=== PATIENT | female | born 1995 | race Caucasian/White ===

== ENCOUNTER 2018-10-02 19:06 | Emergency (ER) | payer OTHER ==
--- NOTE | 2018-10-02 21:11 | ER ---
Nurse's Notes [facility] Name: Kristen Fonseca Age: 22 yrs Sex: Female : 1995 Arrival Date: 10/02/2018 Time: 19:11 Bed Waiting Private MD: Diagnosis: Presentation: 10/02 19:17 Presenting complaint: Patient states: "3 days ago I went to the swager operator and got a jd3 positive test and today I am having spotting and cramping. so I don't know if I am still or what.". Transition of care: patient was not received from another setting of care. Onset of symptoms was October 02, 2018. Risk Assessment: Do you want to hurt yourself or someone else? Patient reports no desire to harm self or others. Initial Sepsis Screen: Does the patient meet any 2 criteria? No. Patient's initial sepsis screen is negative. Does the patient have a suspected source of infection? No. Patient's initial sepsis screen is negative. Care prior to arrival: None. 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 - Social history:: Smoking status: Patient/guardian denies using tobacco, Patient uses vape. - Ebola Screening: : Patient negative for fever greater than or equal to 101.5 degrees Fahrenheit, and additional compatible Ebola Virus Disease symptoms. Vital Signs: 19:20 BP 144 / 69; Pulse 90; Resp 15 S; Temp 97.7(O); Pulse Ox 97% on R/A; Weight 116.57 kg jd3 (R); Height 5 ft. 4 in. (162.56 cm) (R); Pain 5/10; 19:20 Body Mass Index 44.11 (116.57 kg, 162.56 cm) [facility] ED Course: 19:11 Patient arrived in ED. es 19:18 Triage completed. jd3 19:21 Arm band placed on. jd3 20:50 Patient's name was called from ER lobby. No response. jd3 21:07 Patient's name was called from ER lobby. No response. jd3 Administered Medications: No medications were administered Outcome: 21:10 Patient left the ED. jd3 Signatures: Vivian Lira Jonathon RN RN jd3
== END 2018-10-02 21:10 | disposition left against medical advice (07) ==
LOC: ER 19:06
DX: Z53.21 Procedure and treatment not carried out due to patient leaving prior to being seen by health care provider (principal); Z3A.00 Weeks of gestation of pregnancy not specified
CPT/HCPCS: 99281

== ENCOUNTER 2019-12-12 18:00 | Emergency (ER) | payer SELFPAY ==
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
[2019-12-12 19:30] VITALS: BP 147/99; TEMP 98.4; O2SAT 98
== END 2019-12-12 19:24 | disposition left against medical advice (07) ==
LOC: ER 18:00
DX: Z53.21 Procedure and treatment not carried out due to patient leaving prior to being seen by health care provider (principal)
CPT/HCPCS: 99281

== ENCOUNTER 2022-02-13 00:46 | Emergency (ER) | payer SELFPAY ==
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
--- NOTE | 2022-02-13 01:21 | ER ---
Nurse's Notes [facility] Name: Kristen Fonseca Age: 26 yrs Sex: Female : 1995 Arrival Date: 02/13/2022 Time: 00:48 Bed 13 Private MD: Diagnosis: Restlessness and agitation Presentation: 02/13 01:04 Chief complaint: EMS states: pt brought in after arriving to scene for different call lg3 out. pt rambling and hollering not making any sense. brought in for evaluation. 01:04 Method Of Arrival: EMS: [facility] lg3 Triage Assessment: 01:04 General: Appears in no apparent distress. Behavior is agitated, anxious, combative, lg3 inappropriate for age, uncooperative. Neuro: Level of Consciousness is awake, alert. Cardiovascular: Respiratory: Airway is patent Respiratory effort is even, unlabored, Respiratory pattern is regular, symmetrical. GI: Abdomen is round. Derm: No deficits noted. Skin is intact, is healthy with good turgor, Skin is dry, Skin temperature is hot. Musculoskeletal: No deficits noted. Circulation, motion, and sensation intact. Range of motion: intact in all extremities. - Family history:: not pertinent. - Hospitalizations: : No recent hospitalization is reported. Assessment: 01:13 General: pt refused to answer any and all triage and nurse assessment questions. pt lg3 gathered her belongings and left the facility after provider attempted to assess. . ED Course: 00:48 Patient arrived in ED. mw2 00:48 Bhavesh Mendoza MD is Attending Physician. rn 00:48 Karly Smalls RN is Primary Nurse. lg3 01:16 Patient did not have IV access during this emergency room visit. lg3 Administered Medications: No medications were administered Outcome: 01:03 Discharge ordered by . rn 01:16 Discharged to Unknown lg3 01:16 Condition: stable 01:20 Patient left the ED. lg3 Signatures: Bhavesh Mendoza MD MD rn [place], MyKena 2 Karly Smalls RN RN 3
--- OUTSIDE RECORDS SUMMARY | 2022-02-14 14:58 | XMS REPORT | Continuity of Care Document ---
:1995 Author Organization [facility] t Address [address] [place] [address] Care Team Providers Name Role Phone Pcp-None Primary Care Physician Unavailable ABRAHAM Attending Clinician Unavailable ANDREW Attending Clinician Unavailable Andrew OAKES Attending Clinician Marimar APARICIO Attending Clinician Unavailable Db Attending Clinician Unavailable Carolee Cintron Attending Clinician Carolee CUTLER Attending Clinician Unavailable Payers Payer Name Policy Type Policy Number Effective Date Expiration Date [facility] [id number] 2431-05-09 00:00:00 [facility] [id number] 2020 CHOICE MEDICAID 00:00:00 [facility] [id number] 2020 CHOICE STAR 00:00:00 Problems Condition Condition Condition Status Onset Resolution Last Treating Co mments Source Name Details Category Date Date Treatment Clinician Date Encounter Encounter Disease Active Uni vers for other for other 4-11 ity of general general 00:00: [place] counseling counseling 00 Me dical or advice or advice Bran ch on on contracept contracept ion ion Need for Need for Disease Active Unive rs HPV HPV 4-11 it[place] Vaginal Vaginal Disease Active Univers discharge discharge 4-11 ity of 00:00: [place] 00 Medical Branch Encounter Encounter Disease Active Uni vers for for 6-29 ity of surveillan surve[place]an [place] ce of 00 Medical other other Branch contracept contracept cheryl cheryl Breech Breech Disease Active Univers presentati presentati 2-04 it y of on on 00:00: [place] [address] Medical Branch 39 weeks 39 weeks Disease Active Unive rs gestation gestation 2-04 ity of of of 00:00: [place] [address] [facility] Branch Screening Screening Disease Active Uni vers for viral for viral 08-25 ity of disease disease 00:00: [place] [facility] BMI BMI Disease Active 2019-07 Univers 40.0-44.9, 40.0-44.9, 07-29 it y of adult adult 00:00: [place] [facility] Supervisio Supervisio Disease Active 2019-07 U nivers n of high n of high 07-29 ity of risk risk 00:00: [place] [address] 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 mass index mass index Br anch (BMI) of (BMI) of 40.0 to 40.0 to 44.9 in 44.9 in adult, adult, unspecifie unspecifie d obesity d obesity type, type, unspecifie unspecifie d whether d whether serious serious comorbidit comorbidit y present y present Depression Depression Disease Active 2019-07 U nivers 0-12 ity of 00:00: [place] [facility] Bipolar Bipolar Disease Active 2019-07 Univers depression depression 0-12 it y of 00:00: [place] [address] Medical Branch Maternal Maternal Disease Active 2019-07 Overview: Un stepan varicella, varicella, 0-08 Formattin ity of non-immune non-immune 00:00: g of this [place] 00 note Medical might be Branch different from the original. Address in PP. Allergies, Adverse Reactions, Alerts Allergy Allergy Status Severity Reaction(s) Onset Inactive Treating Comm ents Source Name Type Date Date Clinician Unable DA Active U [facility] to 5-07 Assess 00:00: 00 Sulfa DA Active U Anaphylaxis [facility] (Sulfona 5-07 mide 00:00: Antibiot 00 ics) SULFA Drug Active Anaphylaxis Unive rs (SULFONA Class 5-20 ity of MIDE 00:00: [place] ANTIBIOT 00 Medical ICS) Branch Sulfa Propensi Active Anaphylaxis Uni vers (Sulfona ty to 5-20 ity of mide adverse 00:00: [place] Antibiot reaction 00 Medica l ics) s Branch Sulfa Propensi Active Anaphylaxis Uni vers (Sulfona ty to 5-20 ity of mide adverse 00:00: [place] Antibiot reaction 00 Medica l ics) s Branch sulfa Drug Active [facility] sulfa Drug Active [facility] sulfa Drug Active [facility] sulfa Drug Active [facility] sulfa Drug Active [facility] sulfa Drug Active [facility] sulfa Drug Active [facility] sulfa Drug Active [facility] sulfa Drug Active [facility] sulfa Drug Active [facility] Social History Social Habit Start Date Stop Date Quantity Comments Source History of tobacco Cigarette Smoker University of use [facility] Exposure to 2022-02-03 2022-02-13 Not sure University SARS-CoV-2 (event) 00:00:00 02:16:00 [facility] Tobacco use and 2021-11-05 2021-11-05 Smokeless Universit y of exposure 00:00:00 00:00:00 tobacco non-user [facility] Alcohol intake 2021-11-05 2021-11-05 Current drinker Unive rsity of 00:00:00 00:00:00 of alcohol [facility] [place] Tobacco Comment 2021-11-05 2021-11-05 vapes as well Univer sity of 00:00:00 00:00:00 [facility] Cigarettes smoked 2021-11-05 2021-11-05 Univers ity of current (pack per 00:00:00 00:00:00 [facility] ) - Reported Branch Cigarette 2021-11-05 2021-11-05 University of pack-years 00:00:00 00:00:00 [facility] Alcohol Comment 2021-11-05 2021-11-05 social Universit y of 00:00:00 00:00:00 [facility] History SDOH 2020-05-03 2020-05-03 1 [place] o f Alcohol Frequency 00:00:00 00:00:00 [facility] edical Branch History SDOH 2020-05-03 2020-05-03 99 [place] o f Alcohol Std Drinks 00:00:00 00:00:00 [facility] History [facility] 2020-05-03 2020-05-03 1 [place] o f Alcohol Binge 00:00:00 00:00:00 [facility] Sex Assigned At [birth year] Universit y of 00:00:00 00:00:00 [facility] Smoking Status Start Date Stop Date Source Smokes tobacco daily 2021-11-05 00:00:00 Univers ity of [facility] Medications Ordered Filled Start Stop Current Ordering Indication Dosage Frequency Signature Comments Components Source Medication Medication Date Date Medication? Clinician (SIG) Name Name amoxicillin Yes [id number] 500mg Take 1 Univers 500 mg 7-20 capsule by ity of capsule 00:00: mouth in [place] 00 the Medical morning Branch and 1 capsule at noon and 1 capsule in the evening. metroNIDAZO 2021- No [id number] 500mg Take 1 Univers LE 500 mg -12 04-20 tablet by ity of tablet 00:00: 04:59 mouth 2 [place] 00 :00 (two) Medical times [place] daily for 7 days. NUVARING Yes [id number] 1{each} Insert 1 Univers 0.12-0.015 4-11 Each into ity of mg/24 hr 00:00: vagina [place] vaginal 00 once every Medica l insert month. Branch Insert vaginally and leave in place for 3 consecutiv e weeks, then remove for 1 week. NUVARING Yes [id number] 1{each} Insert 1 Univers 0.12-0.015 4-11 Each into ity of mg/24 hr 00:00: vagina [place] vaginal 00 once every Medica l insert month. Branch Insert vaginally and leave in place for 3 consecutiv e weeks, then remove for 1 week. NUVARING Yes [id number] 1{each} Insert 1 Univers 0.12-0.015 4-11 Each into ity of mg/24 hr 00:00: vagina [place] vaginal 00 once every Medica l insert month. Branch Insert vaginally and leave in place for 3 consecutiv e weeks, then remove for 1 week. Immunizations Ordered Filled Immunization Date Status Comments [facility] e Immunization Name Name HPV9 2021-11-05 Completed University of 00:00:00 [facility] HPV9 2021-11-05 Completed University of 00:00:00 [facility] HPV9 2021-11-05 Completed University of 00:00:00 [facility] HPV9 2020-10-31 Completed University of 00:00:00 [facility] HPV9 2020-10-31 Completed University of 00:00:00 [facility] HPV9 2020-10-31 Completed University of 00:00:00 [facility] HPV9 2020-09-20 Completed University of 00:00:00 [facility] HPV9 2020-09-20 Completed University of 00:00:00 [facility] HPV9 2020-09-20 Completed University of 00:00:00 [facility] TDAP 2020-07-10 Completed University of 00:00:00 [facility] TDAP 2020-07-10 Completed University of 00:00:00 [facility] TDAP 2020-07-10 Completed University of 00:00:00 [facility] Influenza Virus 2020-05-08 Completed Universit y of Vaccine Quad .5 mL 00:00:00 [facility] IM 6+ MO Branch Influenza Virus 2020-05-08 Completed Universit y of Vaccine [place] .5 mL 00:00:00 [facility] IM 6+ MO Branch Influenza Virus 2020-05-08 Completed Universit y of Vaccine Quad .5 mL 00:00:[address] [facility] 6+ MO Branch Vital Signs Vital Name Observation Time Observation Value Comments Source Systolic blood 2022-02-13 08:00:00 129 mm[Hg] Univer sity of pressure [facility] Diastolic blood 2022-02-13 08:00:00 81 mm[Hg] Unive rsity of pressure [facility] Heart rate 2022-02-13 08:00:00 90 /min [facility] Respiratory rate 2022-02-13 08:00:00 18 /min [facility] Oxygen saturation in 2022-02-13 08:00:00 97 /min [facility] Arterial blood by [facility] Pulse oximetry [place] Body temperature 2022-02-13 07:37:00 37.22 Alyson [facility] Body height 2022-02-13 07:17:00 162.6 cm [facility] Body weight 2022-02-13 07:17:00 90.719 kg [facility] BMI 2022-02-13 07:17:00 34.33 kg/m2 [facility] Weight Dosing 2021-08-14 10:53:02 111.00 kg Weight Dosing 2021-08-14 10:49:37 111.00 kg Weight Dosing 2021-08-14 10:37:37 111.00 kg Weight Dosing 2021-08-14 10:34:46 111.00 kg Weight Dosing 2021-08-14 10:34:39 111.00 kg Weight Dosing 2021-08-14 10:33:28 111.00 kg Weight Dosing 2021-08-14 10:32:41 111.00 kg Weight Dosing 2021-08-14 10:31:33 111.00 kg Weight Dosing 2021-08-14 10:31:04 111.00 kg Procedures Procedure Date / Time Performing Clinician Source Performed XR PELVIS <3 VW 2022-02-13 07:47:33 Simeon Morales [facility] URINALYSIS 2022-02-13 07:36:00 Simeon Morales [facility] POCT TEST 2022-02-13 07:36:00 Simeon Morales [facility] URINE DRUG (IMMUNOASSAY) 2022-02-13 07:36:00 Simeon Morales [facility] SCREEN W/O REFLEX Encounters Start End Encounter Admission Attending Care Care Encounter Source Date/Time Date/Time Type Type Clinicians Facility Department ID 2021-12-05 Outpatient JEANIE ROSARIO [facility] [id number] 3-2 [facility] 07:35:29 [id number] [facility] [id number] [id number] [facility] 02:56:44 [id number] Outpatient [facility] [id number] [place] 10:27:23 [id number] [facility] 2021-12-03 Outpatient JEANIE ROSARIO [facility] [id number] 3-2 [facility] 10:09:15 [id number] 2021-12-02 Outpatient [facility] [id number] [place] 22:28:[id number] [place] [address] 2021-12-[address] [facility] [id number] [facility] 17:11:00 38 2022-02-13 2022-02-13 Emergency X [facility] ERT [id number] Univers 02:17:00 03:57:00 SIMEON hightower [facility] 2022-02-13 2022-02-13 Emergency [facility] [id number] [facility] 02:17:00 03:57:00 [facility] [id number] i ty [facility] [id number] [facility] [id number] [address] 2021-12-02 2021-12-03 Emergency [facility]Z [facility] MED [id number] [place] 00:35:00 09:40:00 [place], [facility] 2021-12-03 2021-12-03 Outpatient [facility] [id number] [place] 00:00:00 00:00:00 [facility] 2021-11-22 2021-11-22 Telephone Douglas KYROBERTO CARLOS [id number] [facility] 00:00:00 00:00:00 Elaine R WAREHOUSE ADMINISTRATOR [id number] ity General acute hospital [id number] Yusef Zucker [facility] [id number] [facility] ical & CHILD [address] [place] [address] 2021-11-06 2021-11-06 Telephone Douglas KYROBERTO CARLOS [id number] [facility] 00:00:00 00:00:00 Benjamina R WAREHOUSE ADMINISTRATOR [id number] [facility] [id number] Yusef as MATERNAL [id number] Med ical & CHILD [address] [place] [address] 2021-11-05 2021-11-05 Outpatient Carolee CUTLER [facility] [id number] Univers 10:30:00 11:53:26 ELAINE medina [facility] 2019-12-16 2019-12-16 Emergency [facility] IVÁN [id number] 07:30:00 07:30:00 [facility] Results Test Description Test Time Test Comments Results Result Comments Source POCT TEST 2022-02-13 07:36:00 Test Item Value Reference Range Interpretation Comme nts POCT PREG (test code = 1605) negative On board controls acceptable with C Line (test code = 3574) present POCT PREG LOT # (test code = 3575) [id number] POCT PREG TEST DATE (test code = 3576) 05/27/2023 Lab Interpretation (test code = 33224-4) [facility] [id number] 10:47:40 Test Item Value Reference Range Interpretation Comments HCG, Serum Qual (test code = HCG, Negative Serum Qual) Lot # (test code = Lot #) [id number] Expiration Dt (test code = 2021-05-27 N Expiration Dt) Neg Control (test code = Neg Negative Control) Pos Control (test code = Pos Positive Control) Internal QC (test code = Internal Acceptable QC) POC [id number] 10:16:51 Test Item Value Reference Range Interpretation Comments Glucose POC (test 95 mg/dL 70-115 If you con cable television line technician your code = Glucose POC) patient critically ill, the Ajit-Accu Check Infrom II meter should not be used for Glucose determination. Draw a venous Glucose and send to the main Lab for analysis. HIV 1/2 AB-P24 Ag [id number] 11:52:16 Test Item Value Reference Range Interpretation Comments HIV 1/2 Ab (test code = HIV Non Reactive Non Reactive 1/2 Ab) P24 Ag (test code = P24 Ag) Non Reactive Non Reactive Neg Control (test code = Neg Non-Reactive Control) Pos Control (test code = Pos Reactive Control) Lot # (test code = Lot #) [id number] Expiration Dt (test code = 3-27-21 N Expiration Dt) Acute Hepatitis [id number] 07:37:38 Test Item Value Reference Range Interpretation Comments Hep A IgM (test code = Hep A IgM) Nonreactive Non Reactive Hep B Core Ab IgM (test code = Nonreactive Non Reactive Hep B Core Ab IgM) Hep Bs Ag (test code = Hep Bs Ag) Nonreactive Non Reactive Hep C Ab (test code = Hep C Ab) Nonreactive Non Reactive RPR [id number] 16:51:00 Test Item Value Reference Range Interpretation Comments RPR Qual (test code = RPR Qual) Non-Reactive Non-Reactive Reactive Control (test code = Reactive Reactive Control) Weak Reactive Control (test Weak Reactive code = Weak Reactive Control) Non-Reactive Control (test code Non-Reactive = Non-Reactive Control) Lot # (test code = Lot #) [id number] Expiration Dt (test code = 12.31.20 N Expiration Dt) Thyroid Stimulating [id number] 07:46:45 Test Item Value Reference Range Interpretation Comments TSH (test code = TSH) 3.370 mIU/mL 0.270-4.200 Lipid [id number] 07:37:05 Test Item Value Reference Range Interpretation Comments Cholesterol Total 142 mg/dL 0-200 RISK OF HE ART (test code = DISEASEPublishe d by Cholesterol Total) [place] [employer] Daniella lyte Optimal Borderl ine Increased RiskC HOL <200 200-239 >2 40TRIG <150 150-199 >2 00HDL Male >60 <40H DL Female >60 <5 0LDL <100 130-159 >1 60LDL Near optimal is 100-129 Triglycerides (test 193 mg/dL 9-200 code = Triglycerides) HDL (test code = HDL) 32 mg/dL 50-60 L LDL (test code = LDL) 72 mg/dL 0-130 The eq uation being used in this calcula tion is LDL = (Chol - H DL) - (Trig / 5) VLDL (test code = 39 mg/dL 5-40 The equati on being used VLDL) in this calcula tion is VLDL = Trig / 5 Chol/HDL (test code = 4.4 ratio 0.0-4.4 Chol/HDL) LDL/HDL Ratio (test 2 N The equa tion being used code = LDL/HDL Ratio) in thi s calculation is LDL/HDL Ratio=L DL Calc/HDL Chol XR chest 1V [facility] [address] [place] [address] Patient Name: Conor Fonseca Medical Record#: [id number] Address: [facility] [address] City/State/Zip: [place] [address]: Henrique Ace MD Insurance: Medicaid [place] /Age/Sex: 1995// Self Pay Admit/Reg Date: 12/01/[address]: Reji Pavon P Location: [facility]/ PCP: Pcp-Md CHAMP Baez Date of Service: 12/01/21 Order (s): XR chest 1V CPT Code: 02221 Report Number: [id number] Reason for Exam: cough EXAMINATION: XR chest 1V CLINICAL INDICATION: Female, 26 years old with cough COMPARISON: None. FINDINGS: Single view(s) of the chest submitted. Support Devices: None. Heart: Cardiac silhouette is normal in size. Mediastinum: Mediastinal contours are normal. Lungs: Pulmonary vessels are normal in size. Lungs are well aerated and clear. Pleura: No pleural effusion is identified. No pneumothorax is present. Bones: Visualized skeleton is normal. IMPRESSION: No acute cardiopulmonary disease. Electronically signed by: Elizabeth Mallory MD 12/01/2021 7:14 PM CDT Dictated By: Elizabeth Mallory MD 12/01/211903 Signed By: Elizabeth Mallory MD 12/01/211915 TD/TT: 12/01/211903 Tech: [id number] cc: GERALD; PCPNO* Antonietta Son, VINNIE; Pcp-Md CHAMP Baez
== END 2022-02-13 01:20 | disposition home or self-care (01) ==
LOC: ER 00:46
DX: R45.1 Restlessness and agitation (principal)

== ENCOUNTER 2022-02-13 19:12 | Emergency (ER) | payer SELFPAY ==
--- NOTE | 2022-02-13 20:27 | ER ---
Nurse's Notes [facility] Name: Kristen Fonseca Age: 26 yrs Sex: Female : 1995 Arrival Date: 02/13/2022 Time: 19:27 Bed Waiting Private MD: Diagnosis: ED Course: 02/13 19:27 Patient arrived in ED. ja2 20:03 Starla Vega FNP-C is [facility]. kb 20:03 Bhavesh Mendoza MD is Attending Physician. kb 20:05 Patient's name was called from [facility]. No response. Unable to locate patient. Will as6 disposition as left without being seen by a provider. Administered Medications: No medications were administered Outcome: 20:26 Patient left the ED. as6 20:29 Patient left the ED. kb Signatures: Starla Vega FNP-C FNP-Ckb Alexander, Jessica ja2 Otto Graham, RN RN as6
--- NOTE | 2022-02-13 20:30 | EDPHYS ---
Physician Documentation [facility] Name: Kristen Fonseca Age: 26 yrs Sex: Female : 1995 Arrival Date: 02/13/2022 Time: 19:27 Bed Waiting Private MD: ED Physician MDM: 02/13 20:20 Patient medically screened. kb Administered Medications: No medications were administered Disposition Summary: 02/13/22 20:26 Eloped Disposition: Before Triage as6 Reason: unknown as6 Signatures: Starla Vega, JCC Otto Pate, RN RN as6
--- OUTSIDE RECORDS SUMMARY | 2022-02-14 15:55 | XMS REPORT | Continuity of Care Document ---
:1995 Author Organization [facility] t Address [address] [place] [address] Care Team Providers Name Role Phone Pcp-None Primary Care Physician Unavailable ABRAHAM Attending Clinician Unavailable ANDREW Attending Clinician Unavailable Andrew OAKES Attending Clinician Marimar APARICIO Attending Clinician Unavailable Db Attending Clinician Unavailable Carolee Cintron Attending Clinician Carolee CUTLER Attending Clinician Unavailable Payers Payer Name Policy Type Policy Number Effective Date Ex[facility] [id number] 00:00:00 [facility] [id number] 2020 CHOICE MEDICAID 00:00:00 [facility] [id number] 2020 CHOICE STAR 00:00:00 Problems Condition Condition [...] 2-04 it y of on on 00:00: [place] [address] Medical Branch 39 weeks 39 weeks Disease Active Unive rs gestation gestation 2-04 ity of of of 00:00: [place] 00 [facility] Branch Screening Screening Disease Active Uni vers for viral for viral 08-25 ity of disease disease 00:00: [place] [facility] BMI BMI Disease Active 2019-07 Univers 40.0-44.9, 40.0-44.9, 07-29 it y of adult adult 00:00: [place] [facility] Supervisio Supervisio Disease Active 2019-07 U nivers n of high n of high 07-29 ity of risk risk 00:00: [place] 00 [facility] in second in second Bran ch trimester trimester Late Late Disease Active 2019-07 Univers 07-29 ity of care care 00:00: [place] [facility] Multiparit Multiparit Disease Active 2019-07 U nivers y y 07-29 ity of 00:00: [place] [facility] Anxiety Anxiety Disease Active 2019-07 Univers disorder, disorder, 07-29 ity of unspecifie [place] type d type 00 Medical Branch 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 severe severe 07-29 ity of obesity obesity 00:00: [place] with body with body 00 [facility] mass index mass index Br anch (BMI) of (BMI) of 40.0 to 40.0 to 44.9 in 44.9 in adult, adult, unspecifie unspecifie d obesity d obesity type, type, unspecifie unspecifie d whether d whether serious serious comorbidit comorbidit y present y present Depression Depression Disease Active 2019-07 U nivers 0-12 ity of 00:00: [place] [facility] Bipolar Bipolar Disease Active 2019-07 Univers depression depression 0-12 it y of 00:00: [place] [address] Medical Branch Maternal Maternal Disease Active 2019-07 [...] l ics) s Branch sulfa Drug Active [facility] sulfa Drug Active [facility] sulfa Drug Active [facility] sulfa Drug Active [facility] sulfa Drug Active [facility] sulfa Drug Active [facility] sulfa Drug Active [facility] sulfa Drug Active [facility] sulfa Drug Active [facility] sulfa Drug Active [facility] Social History Social Habit Start Date Stop Date Quantity Comments Source History of tobacco Cigarette Smoker University of use [facility] Exposure to 2022-02-03 2022-02-13 Not sure University SARS-CoV-2 (event) 00:00:00 02:16:00 [facility] Tobacco use and 2021-11-05 2021-11-05 Smokeless Universit y of exposure 00:00:00 00:00:00 tobacco non-user [facility] intake 2021-11-05 2021-11-05 Current drinker Unive rsity of 00:00:00 00:00:00 of alcohol [facility] [place] Tobacco Comment 2021-11-05 2021-11-05 vapes as well Univer sity of 00:00:00 00:00:00 [facility] Cigarettes smoked 2021-11-05 2021-11-05 Univers ity of current (pack per 00:00:00 00:00:00 [facility] ) - Reported Branch Cigarette 2021-11-05 2021-11-05 University of pack-years 00:00:00 00:00:00 [facility] Alcohol Comment 2021-11-05 2021-11-05 social Universit y of 00:00:00 00:00:00 [facility] History SDOH 2020-05-03 2020-05-03 1 [place] o f Alcohol Frequency 00:00:00 00:00:00 [facility] edical Branch History SDOH 2020-05-03 2020-05-03 99 [place] o f Alcohol Std Drinks 00:00:00 00:00:00 [facility] History [facility] 2020-05-03 2020-05-03 1 [place] o f Alcohol Binge 00:00:00 00:00:00 [facility] Sex Ass[birth year] Universit y of 00:00:00 00:00:00 [facility] Smoking Status Start Date Stop Date Source Smokes tobacco daily 2021-11-05 00:00:00 Univers ity of [facility] Medications Ordered Filled Start Stop Current Ordering Indication Dosage Frequency Signature Comments Components Source Medication Medication Date Date Medication? Clinician (SIG) Name Name amoxicillin Yes [id number] 500mg Take 1 Univers 500 mg 7-20 capsule by ity of capsule 00:00: mouth in [place] 00 the Medical morning Branch and 1 capsule at noon and 1 capsule in the evening. metroNIDAZO 2021- No [id number] 500mg Take 1 Univers LE 500 mg -12 04-20 tablet by ity of tablet 00:00: 04:59 mouth 2 [place] 00 :00 (two) Medical times [place] daily for 7 days. NUVARING Yes [id number] 1{each} Insert 1 Univers 0.12-0.015 4-11 Each into ity of mg/24 hr 00:00: vagina [place] vaginal 00 once every Medica l insert month. Branch Insert vaginally and leave in place for 3 consecutiv e weeks, then remove for 1 week. NUVARING Yes [id number] 1{each} Insert 1 Univers 0.12-0.015 4-11 Each into ity of mg/24 hr 00:00: vagina [place] vaginal 00 once every Medica l insert month. Branch Insert vaginally and leave in place for 3 consecutiv e weeks, then remove for 1 week. NUVARING Yes [id number] 1{each} Insert 1 Univers 0.12-0.015 4-11 Each into ity of mg/24 hr 00:00: vagina [place] vaginal 00 once every Medica l insert month. Branch Insert vaginally and leave in place for 3 consecutiv e weeks, then remove for 1 week. Immunizations Ordered Filled Immunization Date Status Comments [facility] e Immunization Name Name HPV9 2021-11-05 Completed University of 00:00:00 [facility] HPV9 2021-11-05 Completed University of 00:00:00 [facility] HPV9 2021-11-05 Completed University of 00:00:00 [facility] HPV9 2020-10-31 Completed University of 00:00:00 [facility] HPV9 2020-10-31 Completed University of 00:00:00 [facility] HPV9 2020-10-31 Completed University of 00:00:00 [facility] HPV9 2020-09-20 Completed University of 00:00:00 [facility] HPV9 2020-09-20 Completed University of 00:00:00 [facility] HPV9 2020-09-20 Completed University of 00:00:00 [facility] TDAP 2020-07-10 Completed University of 00:00:00 [facility] TDAP 2020-07-10 Completed University of 00:00:00 [facility] TDAP 2020-07-10 Completed University of 00:00:00 [facility] Influenza Virus 2020-05-08 Completed Universit y of Vaccine Quad .5 mL 00:00:00 [facility] IM 6+ MO Branch Influenza Virus 2020-05-08 Completed Universit y of Vaccine [place] .5 mL 00:00:00 [facility] IM 6+ MO Branch Influenza Virus 2020-05-08 Completed Universit y of Vaccine [place] .5 mL 00:00:00 [facility] 6+ MO Branch Vital Signs Vital Name Observation Time Observation Value Comments Source Systolic blood 2022-02-13 08:00:00 129 mm[Hg] Univer sity of pressure [facility] Diastolic blood 2022-02-13 08:00:00 81 mm[Hg] Unive rsity of pressure [facility] Heart rate 2022-02-13 08:00:00 90 /min [facility] Respiratory rate 2022-02-13 08:00:00 18 /min [facility] Oxygen saturation in 2022-02-13 08:00:00 97 /min [facility] Arterial blood by [facility] Pulse oximetry [place] Body temperature 2022-02-13 07:37:00 37.22 Alyson [facility] Body height 2022-02-13 07:17:00 162.6 cm [facility] Body weight 2022-02-13 07:17:00 90.719 kg [facility] BMI 2022-02-13 07:17:00 34.33 kg/m2 [facility] Weight Dosing 2021-08-14 10:53:02 111.00 kg Weight [...] PELVIS <3 VW 2022-02-13 07:47:33 Simeon Morales [facility] URINALYSIS 2022-02-13 07:36:00 Simeon Morales [facility] POCT TEST 2022-02-13 07:36:00 Simeon Morales [facility] URINE DRUG (IMMUNOASSAY) 2022-02-13 07:36:[address] [facility] SCREEN W/O REFLEX Encounters Start End Encounter Admission Attending Care Care Encounter Source Date/Time Date/Time Type Type Clinicians Facility Department ID 2021-12-05 Outpatient JEANIE ROSARIO [facility] [id number] [facility] 07:35:29 [id number] [facility] [id number] 02:56:44 [id number] Outpatient [facility] [id number] [place] 10:27:[id number] [facility] 2021-12-03 Outpatient JEANIE ROSARIO [facility] [id number] [id number] [facility] 10:09:15 [id number] 2021-12-02 Outpatient [facility] [id number] [place] 22:28:[id number] [place] [id number] 2021-12-01 Inpatient [facility] [id number] [facility] 17:11:00 38 2022-02-13 2022-02-13 Emergency X ANDREW [facility] ERT [id number] Univers 02:17:00 03:57:00 [facility] 2022-02-13 2022-02-13 Emergency Andrew [facility] [id number] [facility] 02:17:00 03:57:00 [facility] [id number] i ty [facility] [id number] [facility] [id number] [address] 2021-12-02 2021-12-03 Emergency LIZ [facility] [id number] [place] 00:35:00 09:40:00 [place], [facility] 2021-12-03 2021-12-03 Outpatient [facility] [id number] 00:00:00 00:00:[address] 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 [id number] ity [facility] [id number] Yusef [facility] [id number] [facility] ical & CHILD [address] [place] [address] 2021-11-06 2021-11-06 Telephone Douglas KYROBERTO CARLOS [id number] [facility] 00:00:00 00:00:00 Benjamina R DRYWALL WORKER [id number] ity of [facility] [id number] Yusef as MATERNAL [id number] Med ical & CHILD [address] [place] [address] 2021-11-05 2021-11-05 Outpatient Carolee CUTLER [facility] [id number] Univers 10:30:00 11:53:26 ELAINE medina [facility] 2019-12-16 2019-12-16 Emergency [facility] [id number] 07:30:00 07:30:00 [facility] Results Test Description Test Time Test Comments Results Result Comments Source POCT TEST 2022-02-13 07:36:00 Test Item Value Reference Range Interpretation Comme nts POCT PREG (test code = 1605) negative On board controls acceptable with C Line (test code = 3574) present POCT PREG LOT # (test code = 3575) [id number] POCT PREG TEST DATE (test code = 3576) 05/27/2023 Lab Interpretation (test code = 43976-2) [facility] [id number] 10:47:40 Test Item Value Reference Range Interpretation Comments HCG, Serum Qual (test code = HCG, Negative Serum Qual) Lot # (test code = Lot #) [id number] Expiration Dt (test code = 2021-05-27 N Expiration Dt) Neg Control (test code = Neg Negative Control) Pos Control (test code = Pos Positive Control) Internal QC (test code = Internal Acceptable QC) POC [id number] 10:16:51 Test Item Value Reference Range Interpretation Comments Glucose POC (test 95 mg/dL 70-115 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 Draw a venous Glucose and send to the main Lab for analysis. HIV 1/2 AB-P24 Ag [id number] 11:52:16 Test Item Value Reference Range Interpretation Comments HIV 1/2 Ab (test code = HIV Non Reactive Non Reactive 1/2 Ab) P24 Ag (test code = P24 Ag) Non Reactive Non Reactive Neg Control (test code = Neg Non-Reactive Control) Pos Control (test code = Pos Reactive Control) Lot # (test code = Lot #) [id number] Expiration Dt (test code = 3-27-21 N Expiration Dt) Acute Hepatitis [id number] 07:37:38 Test Item Value Reference Range Interpretation Comments Hep A IgM (test code = Hep A IgM) Nonreactive Non Reactive Hep B Core Ab IgM (test code = Nonreactive Non Reactive Hep B Core Ab IgM) Hep Bs Ag (test code = Hep Bs Ag) Nonreactive Non Reactive Hep C Ab (test code = Hep C Ab) Nonreactive Non Reactive RPR [id number] 16:51:00 Test Item Value Reference Range Interpretation [...] = 12.31.20 N Expiration Dt) Thyroid Stimulating [id number] 07:46:45 Test Item Value Reference Range Interpretation Comments TSH (test code = TSH) 3.370 mIU/mL 0.270-4.200 Lipid [id number] 07:37:05 Test Item Value Reference Range Interpretation Comments Cholesterol Total 142 mg/dL 0-200 RISK OF HE ART (test code = DISEASEPublishe d by Cholesterol Total) [place] [employer] Daniella lyte Optimal Borderl ine [...] Ratio=L DL Calc/HDL Chol XR chest 1V [facility] [address] [place] [address] Patient Name: Conor Fonseca Medical Record#: [id number] Address: [facility] [address] [place] City/State/Zip: [place] [address]: Henrique Ace MD Insurance: Medicaid [place] /Age/Sex: 1995// Self Pay Admit/Reg Date: 12/01/[address]: Reji Pavon P Location: [facility]/ PCP: Pcp-Md CHAMP Baez Date of Service: 12/01/21 Order (s): XR chest 1V CPT Code: 20339 Report Number: [id number] Reason for Exam: cough EXAMINATION: XR chest [...]
== END 2022-02-13 20:29 | disposition left against medical advice (07) ==
LOC: ER 19:12
DX: Z02.9 Encounter for administrative examinations, unspecified (principal)